=== PATIENT | female | born 1995 ===

== ENCOUNTER 2017-09-04 18:13 | Emergency (ER) | payer SELFPAY ==
[2017-09-04 18:14] VITALS: BMI 23.6
[2017-09-04 18:25] VITALS: O2SAT 99
[2017-09-04] MEDS ORDERED: Lactated Ringer's 1,000 ML IV STA (18:49)
[2017-09-04 19:08] LABS: BASO % 0.4 % (0.0-2.0); EOS # 0.1 K/uL (0.0-0.7); EOS % 0.6 % (0.0-4.0); HEMOGLOBIN 11.3 g/dL (12.0-16.0); LYMPH # 2.7 K/uL (1.0-4.3); LYMPH % 26.5 % (20.0-40.0); MEAN CELL VOLUME 95.5 fl (81.0-99.0); MEAN CORPUSCULAR HEMOGLOBIN 34.4 pg (27.0-31.0); MEAN PLATELET VOLUME 8.1 fl (7.2-11.7); MONO # 0.5 K/uL (0.0-0.8); MONO % 5.4 % (0.0-10.0); NEUT # 6.8 K/uL (1.8-7.0); NEUT % 67.1 % (50.0-75.0); RBC 3.29 Mil/uL (3.80-5.20); RED CELL DISTRIBUTION WIDTH 12.8 % (11.5-14.5)
[2017-09-04 19:29] LABS: PARTIAL THROMBOPLASTIN TIME 28.2 Seconds (25.6-37.1); PROTHROMBIN TIME 10.8 Seconds (9.8-13.1)
[2017-09-04 19:30] LABS: SQUAMOUS EPITHIAL 5 /hpf (0-5); URINE BACTERIA RARE (<OCC); URINE BILIRUBIN NEGATIVE (NEGATIVE); URINE BLOOD NEGATIVE (NEGATIVE); URINE CLARITY SLIGHTY-CLOUDY (Clear); URINE COLOR YELLOW (YELLOW); URINE GLUCOSE (UA) NEG (Normal); URINE LEUKOCYTE ESTERASE TRACE Leu/uL (Negative); URINE PROTEIN NEGATIVE (NEGATIVE); URINE UROBILINOGEN 0.2-1.0 mg/dL (0.2-1.0)
--- NOTE | 2017-09-04 19:48 | ED PDOC ---
HPI: Abdomen Time Seen by Provider: 09/04/17 18:35 Chief Complaint (Nursing): Female Genitourinary Chief Complaint (Provider): Vaginal Bleeding, Abdominal Pain, Back Pain History Per: Patient History/Exam Limitations: no limitations Onset/Duration Of Symptoms: Days (x1) Current Symptoms Are (Timing): Still Present Additional Complaint(s): 22 y/o female at 18 weeks by dates with no significant PMHx presenting for evaluation of vaginal bleeding and abdominal pain x1 day. Patient reports she first noticed her vaginal bleeding around 15:00 when she wiped after using the bathroom. She reports noting spotting. She states 2 hours prior she had cramping bilateral lower abdominal pain. She reports 2 hours prior to her episode of abdominal pain she fell down 3 steps and landed on her back. She reports mild back pain and cramping abdominal pain at this time. She also reports bleeding less than a pad. PMD: [facility] : 2 Para: 1 Past Medical History Reviewed: Historical Data, Nursing Documentation, Vital Signs Vital Signs: Last Vital Signs Temp 98.4 F 09/04/17 23:14 Pulse 86 09/04/17 23:14 Resp 18 09/04/17 23:14 BP 112/68 09/04/17 23:14 Pulse Ox 99 09/04/17 23:14 - Medical History PMH: No Chronic Diseases - Surgical History Surgical History: No Surg Hx - Family History Family History: States: Hypertension - Social History Current smoker - smoking cessation education provided: No Alcohol: None - Home Medications Home Medications: Ambulatory Orders Medication Instructions Recorded Nitrofurantoin Macrocrystals 1 cap PO BID #14 cap 09/04/17 [Macrobid] - Allergies Allergies/Adverse Reactions: Allergies Allergy/AdvReac Type Severity Reaction Status Date / Time No Known Allergies Allergy Verified 09/04/17 18:22 Review of Systems ROS Statement: Except As Marked, All Systems Reviewed And Found Negative Gastrointestinal: Positive for: Abdominal Pain Genitourinary Female: Positive for: Vaginal Bleeding Musculoskeletal: Positive for: Back Pain Physical Exam - Reviewed Nursing Documentation Reviewed: Yes Vital Signs Reviewed: Yes - Physical Exam Appears: Positive for: Well, No Acute Distress Head Exam: Positive for: ATRAUMATIC, NORMOCEPHALIC Skin: Positive for: Warm, Dry Neck: Positive for: Painless ROM, Supple Gastrointestinal/Abdominal: Positive for: Soft, Tenderness (mild superpubic tenderness to palpation). Negative for: Mass, Guarding, Rebound Back: Positive for: Normal Inspection. Negative for: Muscle Spasm Extremity: Positive for: Normal ROM. Negative for: Deformity Neurologic/Psych: Positive for: Alert. Negative for: Motor/Sensory Deficits - Laboratory Results Result Diagrams: 09/04/17 19:00 - ECG O2 Sat by Pulse Oximetry: 99 (RA) Pulse Ox Interpretation: Normal Medical Decision Making Medical Decision Makin:50 Impression: Vaginal bleeding in 2nd trimester. Differential diagnoses include, but are not limited to threatened miscarriage, UTI, subchorionic hemorrhage, or placental abruption. Plan: -Blood type and screen -CMP -Urine dipstick -Lactated Ringers 1L -Urine culture -IV insertion -US OB -Reevaluation EXAM: US Uterus, Limited EXAM DATE/TIME: 09/04/2017 6:47 PM CLINICAL HISTORY: 22 years old, female; Signs and symptoms; Lmp or gestational age (in weeks): Unknown; Other: Spotting; ; Additional info: 18 weeks preg vag bleed S/P fall TECHNIQUE: Real-time ultrasound of the maternal uterus (limited) with image documentation. COMPARISON: No relevant prior studies available. FINDINGS: Fetus: There is a single intrauterine fetus. Fetus measures 18 weeks 2 days with MANUEL of 02/03/2018. Position: Breech position Heart rate: heart rate 147 beats per minute Biometrics: BPD is 4.2 cm, 18 weeks 4 days Abdominal circumference 12.4 cm, 18 weeks 0 days Head circumference 14.8 cm, 18 weeks 0 daysFemur length 2.8 cm, 18 weeks 4 days Placenta: There is a small subchorionic hemorrhage in the lower uterine segment. Other findings: Estimated weight is 238 g plus or -34 g, the 43rd percentile. IMPRESSION: Live intrauterine fetus with small subchorionic hemorrhage. Thank you for allowing us to participate in the care of your patient. Dictated and Authenticated by: Brandi Rose MD 09/04/2017 9:12 PM Eastern Time ([place] & [place]) 21:47 US demonstrates small subchoronic hemorrhage. Discussed with Dr. Susan Mark, OB weapons electrical engineering officer. Advises a few days of mild activity, pelvic rest, and [facility]. Discussed with patient findings and plan of care. Used Ward Nurse [id number]. Scribe Attestation: Documented by Justin Zhao, acting as a scribe for Niyah oNe MD. Provider Scribe Attestation: All medical record entries made by the Scribe were at my direction and personally dictated by me. I have reviewed the chart and agree that the record accurately reflects my personal performance of the history, physical exam, medical decision making, and the department course for this patient. I have also personally directed, reviewed, and agree with the discharge instructions and disposition. Disposition - Clinical Impression Clinical Impression: Threatened miscarriage - Patient ED Disposition Is Patient to be Admitted: No Counseled Patient/Family Regarding: Studies Performed, Diagnosis, Need For Followup - Disposition [facility] - 09/06/17 Disposition: Routine/Home Disposition Time: 21:47 Condition: STABLE Prescriptions: Nitrofurantoin Macrocrystals [Macrobid] 1 cap PO BID #14 cap Instructions: Threatened Miscarriage Forms: [employer] (Faroese) Print Language: MALTESE
[2017-09-04 23:17] VITALS: BP 112/68; PULSE 86; RESP 18; TEMP 98.4
--- NOTE | 2017-09-05 11:31 | US ---
Date of service: 09/04/2017 PROCEDURE: ultrasound HISTORY: 18 WEEKS PREG VAG BLEED S/P FALL COMPARISON: None available. TECHNIQUE: Standard protocol for this study/examination. FINDINGS: Breech presentation. Fundal-posterior Placenta. No evidence of abruption or previa Gestational age derived from LMP 18 weeks 2 days. MANUEL 02/03/2018.. Gestational age derived from the following biometric parameters eighteen weeks 2 days. MANUEL 02/03/2018. Biparietal diameter 4.17 cm Head circumference 14.92 cm Abdominal circumference 12.36 cm Femur length 2.79 cm Estimated weight 5.31 g Calculated cardiac rate 147 beats per min. Closed cervix measuring 5.31 cm Small subchorionic hemorrhage adjacent to the cervix 1.2 x 1.8 x 2.4 cm IMPRESSION: Eighteen weeks 2 days live intrauterine gestation. Gestational concordance documented. Small subchorionic hemorrhage. Concordant results (preliminary interpretation) provided by [facility]. Procedure Completed: 19:43 Preliminary ([facility]) Report: Dictated and Authenticated: 21:12 Final Interpretation: 11:20. September 05, 2017.
== END 2017-09-04 23:15 | disposition home or self-care (01) ==
LOC: H.ER 18:13
DX: O20.0 Threatened abortion (principal); Z3A.18 18 weeks gestation of pregnancy
CPT/HCPCS: 76815; 81003; 81025; 85025; 85610; 85730; 86850; 86900; 87086; 96360; 99284; J7120

== ENCOUNTER 2017-10-28 17:43 | Emergency (ER) | payer SELFPAY ==
[2017-10-28 17:44] VITALS: BMI 23.6
[2017-10-28 18:29] VITALS: BP 107/63; PULSE 80; RESP 16; TEMP 98.4; O2SAT 99
--- NOTE | 2017-10-28 19:36 | ED PDOC ---
HPI: CCC, URI, Sore Throat Time Seen by Provider: 10/28/17 18:45 Chief Complaint (Nursing): ENT Problem Chief Complaint (Provider): Sore throat History Per: Patient History/Exam Limitations: no limitations Have you had recent travel within the past 21 days to any of the following countries: [place], [place], [place] or [place]?: No Onset/Duration Of Symptoms: Days (2) Current Symptoms Are (Timing): Still Present Location Of Pain: Ear(s), Throat Additional History Per: Patient Additional Complaint(s): 22yo female, currently , comes to ER complaining of throat and ear pain x 2 days. She denies any associated fever, chills, chest pain or shortness of breath. Patient states she has not taken any medication as she is . Otherwise, she has no additional medical complaints. Past Medical History Reviewed: Historical Data, Nursing Documentation, Vital Signs Vital Signs: Last Vital Signs Temp 98.4 F 10/28/17 18:28 Pulse 80 10/28/17 18:28 Resp 16 10/28/17 18:28 BP 107/63 10/28/17 18:28 Pulse Ox 99 10/28/17 20:01 - Medical History PMH: No Chronic Diseases - Surgical History Surgical History: No Surg Hx - Family History Family History: States: Hypertension - Home Medications Home Medications: Ambulatory Orders Medication Instructions Recorded Nitrofurantoin Macrocrystals 1 cap PO BID #14 cap 09/04/17 [Macrobid] - Allergies Allergies/Adverse Reactions: Allergies Allergy/AdvReac Type Severity Reaction Status Date / Time No Known Allergies Allergy Verified 09/04/17 18:22 Review of Systems Constitutional: Negative for: Fever, Chills ENT: Positive for: Ear Pain, Throat Pain Cardiovascular: Negative for: Chest Pain Respiratory: Negative for: Shortness of Breath Physical Exam - Reviewed Nursing Documentation Reviewed: Yes Vital Signs Reviewed: Yes - Physical Exam Appears: Positive for: Non-toxic, No Acute Distress Head Exam: Positive for: ATRAUMATIC, NORMAL INSPECTION, NORMOCEPHALIC Skin: Positive for: Normal Color Eye Exam: Positive for: Normal appearance ENT: Positive for: Pharyngeal Erythema (mild). Negative for: Tonsillar Exudate , Tonsillar Swelling Neck: Positive for: Painless ROM Cardiovascular/Chest: Positive for: Regular Rate, Rhythm Respiratory: Positive for: Normal Breath Sounds Neurologic/Psych: Positive for: Alert. Negative for: Motor/Sensory Deficits - ECG O2 Sat by Pulse Oximetry: 99 (RA) Pulse Ox Interpretation: Normal Medical Decision Making Medical Decision Making: Impression: URI, viral infection Plan: * rapid strep Patient informed she can take OTC Tylenol for pain/fever relief. 20:00 Rapid strep test negative. Patient stable for discharge home. Scribe Attestation: Documented by Velia Godinez acting as a scribe for AUNDREA Wilson. Provider Attestation: All medical record entries made by the Scribe were at my direction and personally dictated by me. I have reviewed the chart and agree that the record accurately reflects my personal performance of the history, physical exam, medical decision making, and the department course for this patient. I have also personally directed, reviewed, and agree with the discharge instructions and disposition. Disposition - Clinical Impression Clinical Impression: Sore throat - Patient ED Disposition Is Patient to be Admitted: No Counseled Patient/Family Regarding: Diagnosis, Need For Followup - Disposition Referrals: [facility] [Outside] Disposition: Routine/Home Disposition Time: 20:06 Condition: GOOD Additional Instructions: Tylenol for pain. F/u with PMD Instructions: Viral Pharyngitis Forms: [employer] (Luxembourger)
== END 2017-10-28 20:21 | disposition home or self-care (01) ==
LOC: H.ER 17:43
DX: J02.9 Acute pharyngitis, unspecified (principal)

== ENCOUNTER 2018-02-05 05:50 | Inpatient (IN) | payer MEDICAID, SELFPAY ==
[2018-02-05 06:08] VITALS: BMI 33.0
[2018-02-05] MEDS: Lactated Ringer's 1,000 ML IV SCH ×6 (08:00→12:00)
[2018-02-05] MEDS ORDERED: Oxytocin 30 UNIT 30 UNITS/500 ML BAG IV ONE (08:47)
[2018-02-05 08:51] LABS: BASO % 0.2 % (0.0-2.0); EOS # 0.1 K/uL (0.0-0.7); EOS % 0.6 % (0.0-4.0); LYMPH # 2.5 K/uL (1.0-4.3); LYMPH % 27.3 % (20.0-40.0); MEAN CELL VOLUME 82.8 fl (81.0-99.0); MEAN CORPUSCULAR HEMOGLOBIN 26.3 pg (27.0-31.0); MEAN CORPUSCULAR HGB CONC 31.8 g/dL (33.0-37.0); MEAN PLATELET VOLUME 9.5 fl (7.2-11.7); MONO # 0.6 K/uL (0.0-0.8); MONO % 6.6 % (0.0-10.0); NEUT # 5.9 K/uL (1.8-7.0); NEUT % 65.3 % (50.0-75.0); NRBC % 0.2 % (0.0-0.0); RBC 4.17 Mil/uL (3.80-5.20); RED CELL DISTRIBUTION WIDTH 15.3 % (11.5-14.5)
--- NOTE | 2018-02-05 08:59 | OBADHP ---
Datetime: 02/05/2018 08:55 Admit Comment, IP Provider: 22 yo f 40.2wk present to [facility] due to contraction started on saturday , and have increased in freq with 10-15 min apart. Pt also state she had vaginal bleeding at 4:00 am. Otherwise pt denies watergush. Pt denies any complication during . Last intercourse was on yesterday. Allergy none PCP: Sara Med: PNV PMH: none FH: denies disease Social: Denies smoke, ETOH, drug use. 7:00 Assessment and plan 22 yo f 40.2wk present to [facility] due to contraction started on saturday with vag bleed. FMS: reactive tocometer + fror contraction 1 every 10min pt is lying comfortable with mild pain cervic 3cm 75 posterior US vertix Will observe and recheck. Discussed with Dr. Trae Huston PGY1 OB Hospitalist Addendum: Pt seen and examined by me. Agree w/ above. 22 yo at 40+2 wks w / ctxns in labor. VE: 5/80/-2 at 0841. Pt desires an epidural. FHT reactive. GBS negative. (ES) Extremities - PN: Normal Abdomen - PN: Normal Back - PN: Normal Lungs - PN: Normal Heart - PN: Normal Neurologic - PN: Normal General - PN: Normal FHR - Baseline A Provider: 130's Membranes, Provider: Intact Contraction Comments Provider: 2-3 Vital Signs Provider: Reviewed IP Chief Complaint: Uterine contractions NICHD Variability Prov Fetus A: Moderate 6-25bpm NICHD Accel Fetus A IP Provider: 15X15 Dilatation, Provider: 5 Effacement, Provider: 80 Station, Provider: -2 Genitourinary Exam: Normal EGA AdmitDate IP: 40.2 IP Adm Impression: Term, intrauterine IP Admit Plan: Admit to unit; Initiate labor protocol Datetime: 02/05/2018 06:58 Pelvic Type - PN: Adequate Breast - PN: Not Done Thyroid - PN: Normal HEENT - PN: Normal Presentation-Admit: Vertex Comments, ACOG Physical Exam: Pt is laying comfortable in bed with no acute distress heart no murmur noted lung clear abd non-tender bs+ Pelvic 3cm 75 posterior Gestation - Est Wks by US: 40.2 FHR Category Provider Fetus A: Category I NICHD Decel Fetus A IP Provider: None DTRs - PN: Normal
[2018-02-05] MEDS ORDERED: OXYTOCIN/0.9 % NS 20 UNIT/1,000 ML BAG IV SCH (09:00)
[2018-02-05] MEDS ORDERED: Fentanyl/Bupivacaine HCl 250 ML EPI ONE (09:09)
--- NOTE | 2018-02-05 11:02 | OBPN ---
Datetime: 02/05/2018 10:59 IP Progress Impression: Normal progression of labor IP Procedures: Artificial ROM; Sterile Vag Exam IP Progress Plan: Continue present management Membranes, Provider: Ruptured Amniotic Fluid Color, Provider: Clear Contraction Comments Provider: 2-4 FHR - Baseline A Provider: 130's IP Progress Note Comment: 22 yo at 40+2 wks in labor AROM for clear fluyid at 1100 GBS negative FHT reassuring Vital Signs Provider: Reviewed NICHD Variability Prov Fetus A: Moderate 6-25bpm Dilatation, Provider: 8 Effacement, Provider: 100 Station, Provider: -2 Datetime: 02/05/2018 08:55 NICHD Accel Fetus A IP Provider: 15X15 Datetime: 02/05/2018 06:58 Gestation - Est Wks by US: 40.2 Presentation-Admit: Vertex FHR Category Provider Fetus A: Category I NICHD Decel Fetus A IP Provider: None
[2018-02-05] MEDS ORDERED: Oxycodone/Acetaminophen 5/325 mg Tab PO PRN ×2 (13:47→15:54)
[2018-02-05] MEDS ORDERED: Benzocaine/Menthol SPRAY TOP PRN ×2 (13:47→15:54)
--- NOTE | 2018-02-05 14:08 | OBDS ---
DELIVERY PERSONNEL Delivery Doctor: Jerome Meehan MD Technical Marketing Consultant: Cheryl Benson RN Resident: Albert Brasher (fellow) MATERNAL INFORMATION Delivery Anesthesia: Epidural Medications in Delivery: pitocin Estimated Blood Loss (ml): 100 Placenta Cultured: No Maternal Complications: None RN Comments: Atraumatic of viable baby girl with lusty cry. Skin to skin initiated immediately after delivery transitioned well. 9/9 APGARs assigned. Breast feeding started with the first hour. Patient tolerated delivery well. Infant and patient recovering well. Provider Comments: 22 year old admitted in active labor. Progressed to normal spontaneous vagin al delivery of live female infact, position MICH over intact perineum with epidural anesthesia. No mec onium or nuchal cord. Infant was immediately placed on maternal abdomen and delayed cord clamping was performed. Apgars 9_9, no excessive resuscitation required. Spontaneous delivery of placenta with 3- vessel cord. The vagina was explored and no lacerations were noted. QBL 100cc. Harleen Brasher MD OB Fellow I was present for this delivery. (ES) LABOR SUMMARY EDC: 02/03/2018 00:00 No. Babies in Womb: 1 Attempted: No Labor Anesthesia: Epidural LABOR INFORMATION Reason for Induction: Not Applicable Onset of Labor: 02/05/2018 07:00 Complete Dilatation: 02/05/2018 12:30 Oxytocin: N/A Group B Beta Strep: Negative Antibiotics # of Doses: 0 Steroids Given: None Reason Steroids Not Administered: Not Applicable MEMBRANES Membranes Rupture Method: Artificial Rupture of Membranes: 02/05/2018 10:55 Length of Rupture (hrs): 2.67 Amniotic Fluid Color: Clear Amniotic Fluid Amount: Small Amniotic Fluid Odor: Normal STAGES OF LABOR Stage 1 hrs: 5 Stage 1 min: 30 Stage 2 hrs: 1 Stage 2 min: 5 Stage 3 hrs: 0 Stage 3 min: 5 Total Time in Labor hrs: 6 Total Time in Labor min: 40 VAGINAL DELIVERY Episiotomy: None Laceration Extension: N/A Laceration Type: None Laceration Repair: Not Applicable Initial Vag Sponge Count: 5 Final Vag Sponge Count: 5 Initial Vag Sharps Count: 0 Final Vag Sharps Count: 0 Sponge Count Correct: Yes Sharps Count Correct: N/A BABY A INFORMATION Delivery Date/Time: 02/05/2018 13:35 Method of Delivery: Vaginal Born in Route : No : N/A Forceps: Outlet Vacuum Extraction: N/A Shoulder Dystocia : No SHOULDER DYSTOCIA BABY A Delivery Date/Time: 02/05/2018 13:35 PRESENTATION/POSITION BABY A Presentation: Cephalic Cephalic Presentation: Vertex Vertex Position: Left Occipital Anterior Breech Presentation: N/A PLACENTA INFORMATION BABY A Placenta Delivery Time : 02/05/2018 13:40 Placenta Method of Delivery: Spontaneous Placenta Status: Delivered SCORES BABY A Heart Rate 1 min: >100 bpm Resp Effort 1 min: Good Cry Reflex Irritability 1 min: Cough or Sneeze or Pulls Away Muscle Tone 1 min: Active Motion Color 1 min: Body Nicholson, Extremities Blue Resuscitation Effort 1 min: N/A SCORE 1 MIN: 9 Heart Rate 5 min: >100 bpm Resp Effort 5 min: Good Cry Reflex Irritability 5 min: Cough or Sneeze or Pulls Away Muscle Tone 5 min: Active Motion Color 5 min: Body Nicholson, Extremities Blue Resuscitation Effort 5 min: N/A SCORE 5 MIN: 9 INFORMATION BABY A Gestational Age at Delivery: 40.2 Gestational Status: Term Outcome : Liveborn Infant Condition : Stable Sex: Female IDENTIFICATION/MEDS BABY A ID Band Number: [id number] ID Band Location: Right Leg; Right Arm WEIGHT/LENGTH BABY A Infant Birthweight (gms): 3455 Infant Weight (lb): 7 Infant Weight (oz): 10 CORD INFORMATION BABY A No. Cord Vessels: 3 Nuchal Cord : N/A Cord Blood Taken: No Suction: None ASSESSMENT BABY A Complications: None Physical Findings at Delivery: Within Normal Limits Infant Respirations: Appears Normal Licensing Analyst/ALS Called : No Care By: Tor Benson Transferred To: Remains with Mother
[2018-02-05] MEDS ORDERED: Lactated Ringer's 1,000 ML IV SCH ×2 (14:15→14:30)
[2018-02-06 06:03] LABS: BASO % 0.2 % (0.0-2.0); EOS # 0.1 K/uL (0.0-0.7); EOS % 0.9 % (0.0-4.0); HEMOGLOBIN 9.5 g/dL (12.0-16.0); LYMPH % 23.4 % (20.0-40.0); MEAN CORPUSCULAR HEMOGLOBIN 25.9 pg (27.0-31.0); MEAN CORPUSCULAR HGB CONC 31.9 g/dL (33.0-37.0); MEAN PLATELET VOLUME 9.2 fl (7.2-11.7); MONO # 0.6 K/uL (0.0-0.8); MONO % 4.9 % (0.0-10.0); NEUT # 9.2 K/uL (1.8-7.0); NEUT % 70.6 % (50.0-75.0); RBC 3.66 Mil/uL (3.80-5.20); RED CELL DISTRIBUTION WIDTH 15.3 % (11.5-14.5)
--- NOTE | 2018-02-06 08:22 | OBPPN ---
Datetime: 02/06/2018 06:07 PP Pain Prov: Within normal limits PP Nausea Prov: Denies PP Flatus Prov: Yes PP BM Prov: No PP Breasts Prov: Not Done PP Heart Prov: Normal PP Lungs Prov: Normal PP Abdomen/Uterus Prov: Normal PP Lochia Prov: Normal PP Vulva/Perineum Prov: Normal PP CVA Tenderness Prov: Normal PP Extremities Prov: Normal PP Progress Prov: Normal PP Comments Phys Exam Prov: See note PP Progress Note Prov: 22 yo sp nvd seen and examined at bedside PPD1. Pt complain of mild abd pain that relieved with Ibuprofen, able to ambulate, bleeding equal of menses. PT is able to pass fla tus and void, but no bm. She have good appetite. Pt denies any N/V. O: VS WNL GEN: NAD HEENT: NCAT RESP: CTA b/l CV: RRR, S1 S2 ABD: Soft, uterus firm at umbilicus level EXT: No edema, Suha's neg H/H: 34.5/11.0 A/P 22 YO Sp NVD, today on her PPD1 with normal progression. Plan Encourage breast feeding Ibuprofen for pain Continue current management Will discharge on 02/07 Lauri Huston PGY1 Attending addendum: I saw and examined the patient myself this morning. I reviewed the resident note above and agree w ith findings and management. Continue routine care. Pt to f/u in 4-6 wks at [facility] for post care. Post visit scheduled with Dr Ruiz for SatMar 10 at 10:45a. Planned contraception - Nexpla non. Antonio Ruiz MD Vital Signs Provider PP: Reviewed; Within Normal Limits
[2018-02-06] MEDS ORDERED: Lansinoh for Breast Feeding Mothers TP PRN (09:19)
--- NOTE | 2018-02-07 07:37 | OBPPN ---
Datetime: 02/07/2018 06:34 PP Pain Prov: Within normal limits PP Nausea Prov: Denies PP Flatus Prov: Yes PP BM Prov: Yes PP Heart Prov: Normal PP Lungs Prov: Normal PP Abdomen/Uterus Prov: Normal PP Lochia Prov: Normal PP Vulva/Perineum Prov: Not Done PP CVA Tenderness Prov: Normal PP Extremities Prov: Normal PP Progress Prov: Normal PP Impression Prov: Normal progression PP Plan Prov: Discharge PP Progress Note Prov: 22 yo sp nvd seen and examined at bedside PPD2. Pt abd pain is minimal, bleeding less than menses. + for flatus, BM and void. Regular diet, Pt denies any N/V. O: VS WNL GEN: NAD HEENT: NCAT RESP: CTA b/l CV: RRR, S1 S2 ABD: Soft, uterus firm at umbilicus level EXT: No edema, Suha's neg H/H: 29.6/9.5 A/P 22 YO Sp NVD, today on her PPD2 with normal progression. Plan Encourage breast feeding Ibuprofen for pain Script for Ibuprofen will be placed in chart Discharge home today follow up with PCP in 4-6 wk for care Lauri Huston PGY1 OB Hospitalist Addendum: Pt seen and examined by me. Agree w/ above. PPD 2 s/p , doing well, trying to breast feed. Rx motrin and ferrous sulfate given. Discharge home today. (ES) Vital Signs Provider PP: Reviewed; Within Normal Limits
--- NOTE | 2018-02-07 07:39 | OBDCSUM ---
Datetime: 02/07/2018 06:35 Follow up at, Provider: Sara Soto Instr Activity: May be up to bathroom; May be up for meals; May Shower Disch Instr Diet: Regular Discharge Diagnosis, Provider: Term Delivered Discharge Time: 02/07/2018 10:00 Follow up in weeks, Provider: 4-6 wk Disch Activity Restrictions: Minimize stair-climbing; No sexual activity; Nothing in vagina - Interc ourse, tampons, douche Discharge Comment, Provider: EGA: 40.2wk Diagnosis: NVD risk factors: none : 02/05/18@ 13:35 Post- Summary: No complications during post- period. Lochia less than menses. Pt able to pass gas, and BM. Pt is able ambulate and pass urine. Tolerate regular diet, Fundus firm below umb ilicus level. CBC post-: 29.6/9.5 Discharge Instructions: PNV 1 tab PO daily Ibuprofen 600mg 1 tab prn for mild-mod pain ER precautions: If excessive bleeding or fever without relief from medication, go to ED PT was urged if feeling sad, mood swing, depression, neglect of baby, suicidal thoughts, homicidal thought should go to ER or call 911 for help F/U 4-6 week for PP visit Lauri Huston PGY1 Contraception after Delivery: Undecided
[2018-02-07] MEDS ORDERED: Prenatal Multivit/Folic Acid/Iron Tab PO SCH (09:00)
[2018-02-07 21:52] VITALS: BP 130/66; PULSE 70; RESP 20; TEMP 98.8; O2SAT 100
== END 2018-02-07 13:45 | disposition home or self-care (01) | DRG 560 ==
LOC: H.EROB2 05:50 → H.L&D 08:38 → H.OB/GYN 15:30
PROVIDERS: ADMIT Obstetrics & Gynecology; ATTEND Obstetrics & Gynecology
PROC: 10E0XZZ Delivery of Products of Conception, External Approach (ICD-10-PCS; principal; 2018-02-05)
PROC: 4A1HXCZ Monitoring of Products of Conception, Cardiac Rate, External Approach (ICD-10-PCS; 2018-02-05)
DX: O80 Encounter for full-term uncomplicated delivery (principal); Z37.0 Single live birth; Z3A.40 40 weeks gestation of pregnancy